=== PATIENT | male | born 1950 | race Native Hawaiian/Other Pacific Islander ===

== ENCOUNTER 2016-04-01 09:29 | Outpatient (CLI) | payer OTHER | END 2016-04-01 20:11 | disposition home or self-care (01) | LOC: RAD 09:29 | DX: F17.200 Nicotine dependence, unspecified, uncomplicated (principal) ==

== ENCOUNTER 2017-01-14 10:15 | Outpatient (CLI) | payer OTHER, MEDICARE ==
[2017-01-14 11:08] LABS: PLATELET COUNT 140 K/uL (142-355)
[2017-01-14 11:40] LABS: POTASSIUM 4.4 mmol/L (3.6-5.2); SODIUM 138 mmol/L (136-145)
== END 2017-01-14 11:15 | disposition home or self-care (01) ==
LOC: LABW 10:15
PROVIDERS: Physician Assistant
DX: J44.9 Chronic obstructive pulmonary disease, unspecified (principal); I10 Essential (primary) hypertension; I25.10 Atherosclerotic heart disease of native coronary artery without angina pectoris; C91.00 Acute lymphoblastic leukemia not having achieved remission; Z12.5 Encounter for screening for malignant neoplasm of prostate; Z79.899 Other long term (current) drug therapy; Z51.81 Encounter for therapeutic drug level monitoring
CPT/HCPCS: 36415; 80053; 80061; 83036; 84153; 84439; 84443; 85027

== ENCOUNTER 2017-09-23 09:36 | Outpatient (CLI) | payer OTHER, MEDICARE ==
[2017-09-23 10:40] LABS: PLATELET COUNT 142 K/uL (142-355)
[2017-09-23 11:26] LABS: POTASSIUM 4.7 mmol/L (3.6-5.2)
== END 2017-09-23 19:59 | disposition home or self-care (01) ==
LOC: LABW 09:36
PROVIDERS: Specialist
DX: E78.5 Hyperlipidemia, unspecified (principal); I25.10 Atherosclerotic heart disease of native coronary artery without angina pectoris; Z95.1 Presence of aortocoronary bypass graft; I48.91 Unspecified atrial fibrillation
CPT/HCPCS: 36415; 80053; 80061; 84443; 85027

== ENCOUNTER 2017-12-10 13:53 | Outpatient (CLI) | payer OTHER, MEDICARE | END 2017-12-10 21:21 | disposition home or self-care (01) | LOC: RESP 13:53 | DX: R91.8 Other nonspecific abnormal finding of lung field (principal) ==

== ENCOUNTER 2018-01-02 13:58 | Emergency (ER) | payer OTHER, MEDICARE ==
[~2018-01-02] VITALS: Ht 167.6 cm; Wt 103.4 kg
[2018-01-02 15:14] VITALS: BP 114/81; TEMP 97.2
== END 2018-01-02 15:15 | disposition home or self-care (01) ==
LOC: ED 13:58
DX: J02.9 Acute pharyngitis, unspecified (principal); B37.89 Other sites of candidiasis
CPT/HCPCS: 87651; 99282; 99283

== ENCOUNTER 2018-04-17 09:35 | Outpatient (CLI) | payer OTHER, MEDICARE ==
[2018-04-17 09:57] LABS: PLATELET COUNT 161 K/uL (142-355)
[2018-04-17 10:20] LABS: POTASSIUM 4.5 mmol/L (3.6-5.2)
== END 2018-04-17 19:10 | disposition home or self-care (01) ==
LOC: LABW 09:35
PROVIDERS: Physician Assistant
DX: I10 Essential (primary) hypertension (principal); C91.00 Acute lymphoblastic leukemia not having achieved remission; R35.1 Nocturia; E55.9 Vitamin D deficiency, unspecified; Z79.899 Other long term (current) drug therapy; K59.00 Constipation, unspecified
CPT/HCPCS: 36415; 80053; 82306; 83036; 84153; 84439; 84443; 85007; 85027

== ENCOUNTER 2019-03-16 09:42 | Outpatient (CLI) | payer OTHER, MEDICARE ==
[2019-03-16 10:34] LABS: POTASSIUM 4.8 mmol/L (3.6-5.2)
[2019-03-16 11:29] LABS: PLATELET COUNT 119 K/uL (142-355)
== END 2019-03-16 22:20 | disposition home or self-care (01) ==
LOC: LABW 09:42
PROVIDERS: Internal Medicine
DX: Z00.00 Encounter for general adult medical examination without abnormal findings (principal); I10 Essential (primary) hypertension; Z79.899 Other long term (current) drug therapy; Z12.5 Encounter for screening for malignant neoplasm of prostate; N40.0 Benign prostatic hyperplasia without lower urinary tract symptoms
CPT/HCPCS: 36415; 80053; 80061; 81000; 84153; 84439; 84443; 85007; 85027

== ENCOUNTER 2019-03-19 10:00 | Outpatient (CLI) | payer OTHER, MEDICARE | END 2019-03-19 21:17 | disposition home or self-care (01) | LOC: CT 10:00 | DX: R91.8 Other nonspecific abnormal finding of lung field (principal) ==

== ENCOUNTER 2019-04-06 11:17 | Outpatient (CLI) | payer OTHER, MEDICARE | END 2019-04-06 19:35 | disposition home or self-care (01) | LOC: RAD 11:17 | DX: M51.36 Other intervertebral disc degeneration, lumbar region (principal) ==

== ENCOUNTER 2019-07-07 08:49 | Emergency (ER) | payer OTHER, MEDICARE ==
[~2019-07-07] VITALS: Ht 167.6 cm; Wt 88.5 kg
[2019-07-07 08:55] VITALS: TEMP 97.7
[2019-07-07 09:51] VITALS: BP 134/84
== END 2019-07-07 09:49 | disposition home or self-care (01) ==
LOC: ED 08:49
DX: S93.492A Sprain of other ligament of left ankle, initial encounter (principal); S93.491A Sprain of other ligament of right ankle, initial encounter; M25.571 Pain in right ankle and joints of right foot; W17.89XA Other fall from one level to another, initial encounter; Y92.89 Other specified places as the place of occurrence of the external cause
CPT/HCPCS: 99283

== ENCOUNTER 2019-07-07 12:54 | Outpatient (CLI) | payer OTHER, MEDICARE ==
[2019-07-07 13:16] LABS: PLATELET COUNT 106 K/uL (142-355)
[2019-07-07 13:49] LABS: POTASSIUM 4.1 mmol/L (3.6-5.2)
== END 2019-07-07 20:07 | disposition home or self-care (01) ==
LOC: LAB 12:54
PROVIDERS: Internal Medicine
DX: Z00.00 Encounter for general adult medical examination without abnormal findings (principal); I10 Essential (primary) hypertension; Z79.899 Other long term (current) drug therapy; N40.0 Benign prostatic hyperplasia without lower urinary tract symptoms; Z12.5 Encounter for screening for malignant neoplasm of prostate
CPT/HCPCS: 80053; 80061; 81000; 84153; 84439; 84443; 85027

== ENCOUNTER 2019-07-22 11:51 | Outpatient (CLI) | payer OTHER, MEDICARE | END 2019-07-22 19:09 | disposition home or self-care (01) | LOC: RAD 11:51 | DX: M79.672 Pain in left foot (principal) ==

== ENCOUNTER 2020-06-08 08:44 | Outpatient (CLI) | payer OTHER, MEDICARE ==
[2020-06-08 09:20] LABS: PLATELET COUNT 103 K/uL (142-355)
[2020-06-08 09:41] LABS: POTASSIUM 4.8 mmol/L (3.6-5.2)
== END 2020-06-08 19:23 | disposition home or self-care (01) ==
LOC: LABW 08:44
PROVIDERS: ATTEND Internal Medicine
DX: I25.10 Atherosclerotic heart disease of native coronary artery without angina pectoris (principal); I10 Essential (primary) hypertension
CPT/HCPCS: 36415; 80053; 80061; 80162; 81000; 84439; 84443; 85027

== ENCOUNTER 2020-08-02 16:10 | Outpatient (CLI) | payer OTHER, MEDICARE | END 2020-08-02 19:00 | LOC: LABW 16:10 | PROVIDERS: ATTEND Internal Medicine | DX: I48.91 Unspecified atrial fibrillation (principal) | CPT/HCPCS: 36415; 85610 ==

== ENCOUNTER 2020-09-11 08:16 | Outpatient (CLI) | payer OTHER, MEDICARE | END 2020-09-11 22:36 | disposition home or self-care (01) | LOC: LABW 08:16 | PROVIDERS: ATTEND Internal Medicine | DX: I48.91 Unspecified atrial fibrillation (principal) | CPT/HCPCS: 36415; 85610 ==

== ENCOUNTER 2020-09-28 08:17 | Outpatient (CLI) | payer OTHER, MEDICARE | END 2020-09-28 19:34 | disposition home or self-care (01) | LOC: RAD 08:17 | PROVIDERS: ATTEND Anesthesiology Pain Medicine | DX: M25.551 Pain in right hip (principal) ==

== ENCOUNTER 2020-11-03 08:17 | Outpatient (CLI) | payer OTHER, MEDICARE | END 2020-11-03 21:40 | disposition home or self-care (01) | LOC: LABW 08:17 | PROVIDERS: ATTEND Internal Medicine | DX: I48.91 Unspecified atrial fibrillation (principal) | CPT/HCPCS: 36415; 85610 ==

== ENCOUNTER 2020-11-24 08:28 | Outpatient (CLI) | payer OTHER, MEDICARE | END 2020-11-24 19:53 | disposition home or self-care (01) | LOC: LABW 08:28 | PROVIDERS: ATTEND Internal Medicine | DX: I48.91 Unspecified atrial fibrillation (principal) | CPT/HCPCS: 36415; 85610 ==

== ENCOUNTER 2020-12-01 07:27 | Outpatient (CLI) | payer OTHER, MEDICARE ==
[2020-12-01 08:03] LABS: PLATELET COUNT 92 K/uL (142-355)
[2020-12-01 08:58] LABS: POTASSIUM 4.3 mmol/L (3.6-5.2)
== END 2020-12-01 18:59 | disposition home or self-care (01) ==
LOC: LABW 07:27
PROVIDERS: ATTEND Internal Medicine
DX: I25.10 Atherosclerotic heart disease of native coronary artery without angina pectoris (principal); I10 Essential (primary) hypertension; Z79.899 Other long term (current) drug therapy; I48.91 Unspecified atrial fibrillation; Z12.5 Encounter for screening for malignant neoplasm of prostate
CPT/HCPCS: 36415; 80053; 80061; 80162; 81000; 84153; 84439; 84443; 85027

== ENCOUNTER 2021-01-16 08:45 | Inpatient (IN) | payer OTHER, MEDICARE ==
[~2021-01-16] VITALS: Ht 167.6 cm; Wt 100.4 kg
[2021-01-16] VITALS (7 sets, daily range): BP systolic 125–188; BP diastolic 58–99; TEMP 97.1–97.6; Ht 167.6 cm; Wt 100.4 kg
[2021-01-16 09:11] LABS: PLATELET COUNT 98 K/uL (142-355)
[2021-01-16 09:22] LABS: POTASSIUM 4.3 mmol/L (3.6-5.2)
[2021-01-16 09:28] LABS: PARTIAL THROMBOPLASTIN TIME 53.2 SECONDS (24.5-33.6)
[2021-01-16] MEDS ORDERED: METO50TA27 PO (12:45)
[2021-01-16] MEDS ORDERED: WARF5TAB6 PO (12:45)
[2021-01-16] MEDS ORDERED: PREGABALIN150 MG PO (12:46)
[2021-01-16] MEDS ORDERED: HYDROCODONE BIT1 TA1 PO (12:47)
[2021-01-16] MEDS ORDERED: DIGOXIN250 MCG PO (12:48)
[2021-01-16] MEDS ORDERED: EQ ASPIRIN325 M1 PO (12:49)
[2021-01-17] VITALS: BP 150/68; TEMP 98.5
[2021-01-17 04:21] VITALS: BP 124/54; TEMP 98.7
[2021-01-17 04:39] LABS: PLATELET COUNT 110 K/uL (142-355)
[2021-01-17 04:51] LABS: POTASSIUM 4.1 mmol/L (3.6-5.2)
[2021-01-17 08:00] VITALS: BP 134/73; TEMP 97.8
[2021-01-17 12:00] VITALS: BP 133/68; TEMP 98
[2021-01-17 16:00] VITALS: BP 146/66; TEMP 98.5
[2021-01-17 20:24] VITALS: BP 133/63; TEMP 97.6
[2021-01-18 00:07] VITALS: BP 127/65; TEMP 97.7
[2021-01-18 04:10] VITALS: BP 124/65; TEMP 97.6
[2021-01-18 08:00] VITALS: BP 130/67; TEMP 97.4
[2021-01-18 12:00] VITALS: BP 134/76; TEMP 97.9
[2021-01-18] MEDS ORDERED: IPRATROPIUM/ INH (13:24)
[2021-01-18] MEDS ORDERED: LEVAQUIN250 MG PO (13:25)
[2021-01-18] MEDS ORDERED: APIX1TAB PO (13:26)
[2021-01-18] MEDS ORDERED: CARB25TA29 PO (13:27)
[2021-01-18] MEDS ORDERED: PRED10TA27 PO (13:36)
== END 2021-01-18 15:40 | disposition home or self-care (01) | DRG 190 ==
LOC: ED 08:45 → MED/SURG 09:50
PROVIDERS: Hospitalist; ADMIT Internal Medicine Endocrinology, Diabetes & Metabolism; ATTEND Internal Medicine Endocrinology, Diabetes & Metabolism
DX: J44.0 Chronic obstructive pulmonary disease with (acute) lower respiratory infection (principal); J18.8 Other pneumonia, unspecified organism; J96.01 Acute respiratory failure with hypoxia; C91.10 Chronic lymphocytic leukemia of B-cell type not having achieved remission; J44.1 Chronic obstructive pulmonary disease with (acute) exacerbation; G20 Parkinson's disease; I48.91 Unspecified atrial fibrillation; G89.4 Chronic pain syndrome; G25.81 Restless legs syndrome
CPT/HCPCS: 36415; 36600; 80048; 80053; 80162; 82550; 82805; 83605; 83880; 84484; 85027; 85610; 85730; 87040; 87635; 93005; 94640; 94664; 94760; 96365; 96375; 99284; G0436; J0456; J0696; J1650; J1940; J2920; J2930; J3370; Q9963; U0003

== ENCOUNTER 2021-01-29 08:20 | Outpatient (CLI) | payer OTHER, MEDICARE ==
[~2021-01-29 08:20] MED LIST: APIX1TAB PO; CARB25TA29 PO; DIGOXIN250 MCG PO; EQ ASPIRIN325 M1 PO; HYDROCODONE BIT1 TA1 PO; IPRATROPIUM/ INH; LEVAQUIN250 MG PO; METO50TA27 PO; PRED10TA27 PO; PREGABALIN150 MG PO; WARF5TAB6 PO
== END 2021-01-29 18:57 | disposition home or self-care (01) ==
LOC: LABW 08:20
PROVIDERS: ATTEND Internal Medicine
DX: I48.91 Unspecified atrial fibrillation (principal)
CPT/HCPCS: 36415; 85610

== ENCOUNTER 2021-02-19 08:58 | Outpatient (CLI) | payer OTHER, MEDICARE ==
[2021-02-19 09:50] LABS: POTASSIUM 4.6 mmol/L (3.6-5.2)
== END 2021-02-19 19:47 | disposition home or self-care (01) ==
LOC: LABW 08:58
PROVIDERS: ATTEND Internal Medicine Cardiovascular Disease
DX: Z79.899 Other long term (current) drug therapy (principal); R06.09 Other forms of dyspnea
CPT/HCPCS: 36415; 80048; 83880

== ENCOUNTER 2021-09-11 08:18 | Outpatient (CLI) | payer OTHER, MEDICARE | END 2021-09-11 19:01 | disposition home or self-care (01) | LOC: MRI 08:18 | PROVIDERS: ATTEND Pain Medicine Interventional Pain Medicine | DX: M54.17 Radiculopathy, lumbosacral region (principal) ==

== ENCOUNTER 2021-10-31 09:15 | Outpatient (CLI) | payer OTHER, MEDICARE | END 2021-10-31 19:18 | disposition home or self-care (01) | LOC: CT 09:15 | PROVIDERS: ATTEND Internal Medicine | DX: J32.0 Chronic maxillary sinusitis (principal) ==

== ENCOUNTER 2022-07-02 13:45 | Outpatient (CLI) | payer OTHER, MEDICARE | END 2022-07-02 19:08 | disposition home or self-care (01) | LOC: RAD 13:45 | PROVIDERS: ATTEND Internal Medicine | DX: R07.89 Other chest pain (principal) ==

== ENCOUNTER 2022-07-03 08:37 | Outpatient (CLI) | payer OTHER, MEDICARE ==
[2022-07-03 09:00] LABS: PLATELET COUNT 97 K/uL (142-355)
[2022-07-03 09:30] LABS: POTASSIUM 4.6 mmol/L (3.6-5.2); SODIUM 141 mmol/L (136-145)
== END 2022-07-03 19:00 | disposition home or self-care (01) ==
LOC: LABW 08:37
PROVIDERS: ATTEND Internal Medicine
DX: C91.10 Chronic lymphocytic leukemia of B-cell type not having achieved remission (principal); M35.3 Polymyalgia rheumatica; I25.10 Atherosclerotic heart disease of native coronary artery without angina pectoris; I10 Essential (primary) hypertension
CPT/HCPCS: 36415; 80053; 80061; 80299; 81000; 82550; 85027; 85652; 86038; 86140; 86431

== ENCOUNTER 2022-11-12 10:02 | Outpatient (CLI) | payer OTHER, MEDICARE | END 2022-11-12 20:08 | disposition home or self-care (01) | LOC: RAD 10:02 | PROVIDERS: ATTEND Internal Medicine | DX: J44.1 Chronic obstructive pulmonary disease with (acute) exacerbation (principal) ==